=== PATIENT | male | born 1970 | race Caucasian/White ===

== ENCOUNTER 2021-01-04 12:24 | Emergency (ER) | payer OTHER ==
[2021-01-04] MEDS ORDERED: Tetracaine HCl/PF 0.5% 4 ML Bottle EYERT ONE (12:33)
[2021-01-04] MEDS ORDERED: Fluorescein 1 MG Ophth Strip EYERT ONE (13:02)
[2021-01-04] MEDS: Gentamicin 0.3% Ophth Soln 5 ML Bottle EYERT SCH ×2 (13:09→13:50)
--- NOTE | 2021-01-04 13:12 | EDM.PDOC ---
ED HPI GENERAL MEDICAL PROBLEM - General Chief Complaint: Eye Problems Stated Complaint: PIECE OF METAL IN EYE WORKES COMP 1913298 Time Seen by Provider: 01/04/21 12:40 Source of Information: Reports: Patient History Limitations: Reports: No Limitations - History of Present Illness INITIAL COMMENTS - FREE TEXT/NARRATIVE: 50 y/o M c/o metal fragment in R eye. Pt states yesterday he was grinding down some metal at work when a piece of metal bounced off the work bench, went under his glasses and into his R eye. The described an itchy feeling in his eye but no pain, no visual changes. Denies fever, cough, chills, drugs, etoh, loc, collins. Duration: Day(s): Location: Reports: Head - Related Data Allergies Allergy/AdvReac Type Severity Reaction Status Date / Time acetaminophen [From Tylenol] Allergy Headache Verified 01/04/21 12:38 chocolate flavor Allergy Anaphylactic Verified 01/04/21 12:38 Shock hornet venom Allergy Swelling Verified 01/04/21 12:38 wasp Allergy Swelling Uncoded 01/04/21 12:38 Home Meds: Home Meds atorvaSTATin Calcium [Lipitor] 20 mg PO BEDTIME 01/04/21 [History] metFORMIN [Glucophage XR] 1,000 mg PO BID 01/04/21 [History] Past Medical History HEENT History: Reports: Impaired Vision Other HEENT History: has glasses that doesn't wear Cardiovascular History: Reports: None Respiratory History: Reports: None Gastrointestinal History: Reports: None Genitourinary History: Reports: None Musculoskeletal History: Reports: None Neurological History: Reports: None Psychiatric History: Reports: None Endocrine/Metabolic History: Reports: Diabetes, Type II, Obesity/BMI 30+ Hematologic History: Reports: None Immunologic History: Reports: None Oncologic (Cancer) History: Reports: None Dermatologic History: Reports: None - Infectious Disease History Infectious Disease History: Reports: Chicken Pox, Scarlet Fever - Past Surgical History Head Surgeries/Procedures: Reports: None HEENT Surgical History: Reports: Tonsillectomy GI Surgical History: Reports: Appendectomy Other Musculoskeletal Surgeries/Procedures:: have had broken bones Social & Family History - Tobacco Use Tobacco Use Status *Q: Never Tobacco User Second Hand Smoke Exposure: No - Caffeine Use Caffeine Use: Reports: Coffee - Recreational Drug Use Recreational Drug Use: No ED ROS GENERAL - Review of Systems Review Of Systems: Comprehensive ROS is negative, except as noted in HPI. ED EXAM GENERAL W FULL EYE - Physical Exam Exam: See Below Exam Limited By: No Limitations General Appearance: Alert, No Apparent Distress Eye Exam: Bilateral Eye: PERRL (with conjugate gaze) Eyelids: Bilateral: Normal Appearance Cornea Exam: Right: Corneal Abrasion (small corneal abrasion at the 3 oclock position), Foreign Body (small metal fragement at the 3 oclock position) Pupillary Size: Bilateral: 4 mm Pupillary Reaction: Bilateral: Brisk Ears: Normal External Exam, Normal Canal, Hearing Grossly Normal, Normal TMs Nose: Normal Inspection, Normal Mucosa, No Blood Throat/Mouth: Normal Inspection, Normal Lips, Normal Teeth, Normal Gums, Normal Oropharynx, Normal Voice, No Airway Compromise Respiratory/Chest: No Respiratory Distress, Lungs Clear, Normal Breath Sounds, No Accessory Muscle Use, Chest Non-Tender Cardiovascular: Normal Peripheral Pulses, Regular Rate, Rhythm, No Edema, No Gallop, No JVD, No Murmur, No Rub Course - Vital Signs Last Recorded V/S: Last Vital Signs Temp 98.6 F 01/04/21 12:32 Pulse 80 01/04/21 12:32 Resp 18 01/04/21 12:32 BP 148/92 H 01/04/21 12:32 Pulse Ox 99 01/04/21 12:32 - Orders/Labs/Meds Orders: Active Orders 24 hr Category Date Time Status Gentamicin [Garamycin 0.3% Ophth Soln] Med 01/04/21 14:00 Active 1 ml EYERT TID Medication Orders Gentamicin Sulfate (Gentamicin 0.3% Ophth Soln 5 Ml Bottle) 1 ml EYERT TID ASHLEY Last Admin: 01/04/21 13:09 Dose: 1 ml Documented by: HILARIO Meds: Medications Generic Name Dose Route Start Last Admin Trade Name Freq PRN Reason Stop Dose Admin Gentamicin Sulfate 1 ml 01/04/21 14:00 01/04/21 13:09 Gentamicin 0.3% Ophth Soln 5 Ml Bottle EYERT 1 ml TID ASHLEY Administration Discontinued Medications Generic Name Dose Route Start Last Admin Trade Name Freq PRN Reason Stop Dose Admin Fluorescein Sodium 1 mg 01/04/21 13:02 01/04/21 13:09 Fluorescein 1 Mg Ophth Strip EYERT 01/04/21 13:03 1 mg ONETIME ONE Administration Tetracaine HCl 1 ml 01/04/21 12:33 01/04/21 12:49 Tetracaine Hcl/Pf 0.5% 4 Ml Bottle EYERT 01/04/21 12:34 1 ml ASDIRECTED ONE Administration Departure - Departure Time of Disposition: 13:21 Disposition: Home, Self-Care 01 Condition: Good Clinical Impression: Foreign body, eye Qualifiers: Encounter type: initial encounter Laterality: right Qualified Code(s): T15.91XA - Foreign body on external eye, part unspecified, right eye, initial encounter Corneal abrasion Qualifiers: Encounter type: initial encounter Laterality: right Qualified Code(s): S05.01XA - Injury of conjunctiva and corneal abrasion without foreign body, right eye, initial encounter - Discharge Information Instructions: Eye Foreign Body, [id number], Corneal Abrasion Forms: ED Department Discharge Additional Instructions: Gentamicin 1 drop 4 times a day for 5 days. If any new symptoms or concerns develop contact your primary care facility or return to the ER Sepsis Event Note (ED) - Evaluation Sepsis Screening Result: No Definite Risk - Focused Exam Vital Signs: Vital Signs Temp Pulse Resp BP Pulse Ox 01/04/21 12:32 98.6 F 80 18 148/92 H 99 - My Orders Last 24 Hours: My Active Orders 01/04/21 14:00 Gentamicin [Garamycin 0.3% Ophth Soln] 1 ml EYERT TID - Assessment/Plan Last 24 Hours: My Active Orders 01/04/21 14:00 Gentamicin [Garamycin 0.3% Ophth Soln] 1 ml EYERT TID
== END 2021-01-04 13:52 | disposition home or self-care (01) ==
LOC: DL.ED 12:24
DX: T15.01XA Foreign body in cornea, right eye, initial encounter (principal); E11.9 Type 2 diabetes mellitus without complications; E66.9 Obesity, unspecified; Z68.42 Body mass index [BMI] 45.0-49.9, adult; Z91.018 Allergy to other foods; Z91.030 Bee allergy status; Z88.8 Allergy status to other drugs, medicaments and biological substances; W22.8XXA Striking against or struck by other objects, initial encounter; Y99.0 Civilian activity done for income or pay
CPT/HCPCS: 99283; A9270